=== PATIENT | male | born 1955 | race Asian ===

== ENCOUNTER → 2016-09-06 | Outpatient (CLI) | payer OTHER, MEDICARE ==
[~2016-09-06] MED LIST: ALLO300T PO; CALC1CAP8 PO; CALC1TAB68 PO; CALC200T24 PO; CHOL10003 PO; CHOL500014 PO; COLE625T2 PO; INSU100I13 SQ-INSULIN; INSU100V8 SQ; METF500T4 PO; PANT40TA5 PO; POLY17PO5 PO; PRED20TA PO; PRED5TAB PO; SEVE800T PO; SIMV20TA3 PO; VALS320T2 PO
== END | disposition home or self-care (01) ==
LOC: CVU 13:18
DX: N18.6 End stage renal disease (principal); Z99.2 Dependence on renal dialysis
CPT/HCPCS: G0365

== ENCOUNTER 2020-06-14 11:02 | Emergency (ER) | payer MEDICARE, OTHER ==
[~2020-06-14] VITALS: Ht 172.7 cm; Wt 108.0 kg
[~2020-06-14 11:02] MED LIST changes: -CHOL500014 PO; +CHOL500045 PO; +COLE625T12 PO; -COLE625T2 PO; +METF500T17 PO; -METF500T4 PO; -PANT40TA5 PO; +PANT40TA6 PO; -SEVE800T PO; +SEVE800T7 PO; +SIMV20TA19 PO; -SIMV20TA3 PO
--- NOTE | 2020-06-14 12:30 | NUR ---
US AT BEDSIDE.
--- NOTE | 2020-06-14 13:12 | NUR ---
RECEIVED REPORT FROM MADELINE CHOUDHARY. PT RESTING ON RACHEL. NADN. LINDSAYS. TECH AT BEDSIDE.
--- NOTE | 2020-06-14 14:11 | NUR ---
CALLED CARDIOVASCULAR US WHO STATES US IS CMP WAITING ON THE READ.
--- NOTE | 2020-06-14 14:16 | NUR ---
PT RESTING ON GURNEY. NADN. ROBLEDO.
--- NOTE | 2020-06-14 15:30 | NUR ---
THIS FLOAT RN AT BEDSIDE TO DC PT FOR PRIMARY RN, MILIND. PT AND FAMILY VERBALIZED UNDERSTANDING TO DC INSTRUCTIONS. AMBULATORY TO CHECKOUT C STEADY GAIT. VSS.
[2020-06-14 15:31] VITALS: BP 11/59
== END 2020-06-14 15:32 | disposition home or self-care (01) ==
LOC: ED 11:37
DX: I70.201 Unspecified atherosclerosis of native arteries of extremities, right leg (principal); L53.9 Erythematous condition, unspecified; M79.89 Other specified soft tissue disorders; I10 Essential (primary) hypertension; E11.9 Type 2 diabetes mellitus without complications; J45.909 Unspecified asthma, uncomplicated
CPT/HCPCS: 93931; 99285

== ENCOUNTER 2020-06-25 08:21 | Emergency (ER) | payer MEDICARE ==
[~2020-06-25] VITALS: Ht 172.7 cm; Wt 108.8 kg
[~2020-06-25 08:21] MED LIST changes: +MIDO5TAB9 PO; +[UNRECOGNIZED DRUG - CODE] IV
--- NOTE | 2020-06-25 08:21 | NUR ---
BIBA FROM DIALYSIS C/O EPISODE SOB & CHEST PRESSURE IMMEDIATELY FOLLOWING MULT AVF ACCESSES BY DIALYSIS STAFF (DIALYSIS TOTALS TODAY PER EMS: 500ML IN, 421ML OUT, 2.3MG HEPARIN), MULT ACCESS D/T RUE AVF INFILTRATION DURING TX TODAY, PT COMPLAINT-FREE ON ARRIVAL; PIV & BG 121 PLANT WIRE CHIEF PER EMS; PT ABLE TO AMBULATE FROM STRETCHER TO GURNEY, MONITORS IN PLACE, COMFORT MEASURES PROVIDED, CALL LIGHT WITHIN REACH.
[2020-06-25 08:48] LABS: BASOPHILS % (AUTO) 0 % (0-1); EOSINOPHILS % (AUTO) 2 % (1-7); LYMPHOCYTES % (AUTO) 13 % (22-44); MEAN CORPUSCULAR HEMOGLOBIN 31.3 pg (27.5-34.5); MEAN CORPUSCULAR HGB CONC 33.2 g/dL (33.2-36.2); MEAN PLATELET VOLUME 7.6 fL (7.4-10.4); MONOCYTES % (AUTO) 6 % (2-9); NEUTROPHILS % (AUTO) 78 % (42-75); PLATELET COUNT 302 x10^3/uL (130-400); RED BLOOD COUNT 2.89 x10^6/uL (4.38-5.82); RED CELL DISTRIBUTION WIDTH 13.5 % (9.4-14.8)
[2020-06-25 08:49] LABS: MD NO
[2020-06-25 08:59] LABS: ALBUMIN 2.6 g/dL (3.4-5.0); ANION GAP 8 mmol/L (5-15); CALCIUM 8.9 mg/dL (8.5-10.1); CHLORIDE 105 mmol/L (98-107); CREATININE 4.15 mg/dL (0.7-1.3)
[2020-06-25] MEDS ORDERED: SODIUM CHLORIDE FLUSH 10ML SYR IVF ONE (09:00)
[2020-06-25 09:03] VITALS: BP 130/68
[2020-06-25 09:03] LABS: TROPONIN I < 0.015 ng/mL (0.000-0.045)
--- NOTE | 2020-06-25 09:03 | NUR ---
PT UPRIGHT ON GURNEY AWAKE & COMFORTABLE, RESPONDS APPROP TOSTAFF, NAD/NO COMPLAINTS, COMFORT MEASURES PROVIDED, MOM ARRIVED TO BS, CALL LIGHT WITHIN REACH.
--- NOTE | 2020-06-25 09:58 | NUR ---
TASK RNPatient/Caregiver given discharge instructions and they have confirmed that they understand the instructions. Patient ambulatory to wheelchair for d/c.
== END 2020-06-25 09:59 | disposition home or self-care (01) ==
LOC: ED 08:39
DX: R07.2 Precordial pain (principal); R06.00 Dyspnea, unspecified; I10 Essential (primary) hypertension; E11.9 Type 2 diabetes mellitus without complications; J45.909 Unspecified asthma, uncomplicated; E78.5 Hyperlipidemia, unspecified; Z87.891 Personal history of nicotine dependence
CPT/HCPCS: 36415; 71045; 80048; 82040; 84484; 85025; 93005; 99285

== ENCOUNTER 2020-08-03 14:24 | Emergency (ER) | payer MEDICARE ==
[~2020-08-03] VITALS: Ht 172.7 cm; Wt 105.1 kg
--- NOTE | 2020-08-03 14:56 | NUR ---
PT CAME IN CO NECK PAIN. DENIES TRAUMA. "STARTED LAST TUESDAY AND IT MOVES UP THE BACK OF MY HEAD" LIMITED ROM FROM SIDE TO SIDE. PT IN BED IN GOWN AWAITING MD DUBOIS. FAMILY AT BEDSIDE.
[2020-08-03] MEDS ORDERED: KETOROLAC 30 MG/1 ML IM ONE (15:30)
[2020-08-03] MEDS ORDERED: DIAZEPAM 5 MG TABLET PO ONE (15:30)
[2020-08-03] MEDS ORDERED: DIAZEPAM 5 MG TABLET ONE (15:40)
[2020-08-03] MEDS ORDERED: KETOROLAC 30 MG/1 ML ONE (15:40)
[2020-08-03 15:52] VITALS: BP 150/78
--- NOTE | 2020-08-03 15:52 | NUR ---
PT RESTING COMFORTABLY IN BED. CALL LIGHT WITHIN REACH.
== END 2020-08-03 16:20 | disposition home or self-care (01) ==
LOC: ED 14:56
DX: S16.1XXA Strain of muscle, fascia and tendon at neck level, initial encounter (principal); E11.9 Type 2 diabetes mellitus without complications; J45.909 Unspecified asthma, uncomplicated; M10.9 Gout, unspecified; I10 Essential (primary) hypertension; E78.5 Hyperlipidemia, unspecified; E78.00 Pure hypercholesterolemia, unspecified; X58.XXXA Exposure to other specified factors, initial encounter; Y93.89 Activity, other specified; Y92.89 Other specified places as the place of occurrence of the external cause; Y99.8 Other external cause status
CPT/HCPCS: 96372; 99283; J1885

== ENCOUNTER 2020-08-20 12:24 | Emergency (ER) | payer MEDICARE ==
[~2020-08-20] VITALS: Ht 172.7 cm; Wt 105.0 kg
--- NOTE | 2020-08-20 13:07 | NUR ---
TASK RN: PT AMBULATED STEADILY TO ROOM FROM TRIAGE. NAD NOTED. PT REPORTS 'CLOTTING' OF R DIALYSIS SITE. MULTIPLE FISTULA SITES ON RUE, SITES PULSATILE- NO THRILL OR BRUIT NOTED. DIFFICULT TO OBTAIN MEDICAL HISTORY FROM PATIENT-- POSSIBLE HX OF DVT. BP/SPO2 MONITOR IN PLACE. REPORT TO PRIMARY RNSLAVA
--- NOTE | 2020-08-20 13:26 | NUR ---
assumed care of pt. report from Deepa CORREA pt here for evaluation of VIKKI fistula that was unable to be used for dialysis tiday. pt usually has dialysis -- and states that his last dialysis was on Tuesday and there were no issues. fistula is currently covered. no bruit or thrill noted. no other c/o at this time Dr. Valenzuela at bedside for eval
--- NOTE | 2020-08-20 13:32 | NUR ---
pt reports last meal at 1130. pt advised to be NPO at this time
[2020-08-20 13:51] LABS: BASOPHILS % (AUTO) 1 % (0-1); EOSINOPHILS % (AUTO) 3 % (1-7); LYMPHOCYTES % (AUTO) 19 % (22-44); MEAN CORPUSCULAR HEMOGLOBIN 29.7 pg (27.5-34.5); MEAN CORPUSCULAR HGB CONC 32.2 g/dL (33.2-36.2); MEAN PLATELET VOLUME 7.8 fL (7.4-10.4); MONOCYTES % (AUTO) 9 % (2-9); NEUTROPHILS % (AUTO) 67 % (42-75); PLATELET COUNT 162 x10^3/uL (130-400); RED BLOOD COUNT 3.49 x10^6/uL (4.38-5.82); RED CELL DISTRIBUTION WIDTH 16.9 % (9.4-14.8)
[2020-08-20 14:00] LABS: MD NO
[2020-08-20] MEDS ORDERED: SODIUM CHLORIDE FLUSH 10ML SYR IVF ONE (14:00)
[2020-08-20 14:01] LABS: ALANINE AMINOTRANSFERASE 17 U/L (12-78); ALBUMIN 2.8 g/dL (3.4-5.0); ANION GAP 8 mmol/L (5-15); CALCIUM 8.2 mg/dL (8.5-10.1); CHLORIDE 107 mmol/L (98-107)
[2020-08-20 14:03] LABS: INTERNATIONAL NORMALIZED RATIO 1.07 (0.93-1.1); PROTHROMBIN TIME 11.4 Seconds (9.6-11.5)
[2020-08-20 14:06] LABS: ALKALINE PHOSPHATASE 60 U/L (45-117); BILIRUBIN,TOTAL 0.3 mg/dL (0.2-1.0); CREATININE 7.11 mg/dL (0.7-1.3); TOTAL PROTEIN 7.8 g/dL (6.4-8.2)
--- NOTE | 2020-08-20 14:27 | NUR ---
pt sleeping. no apparent distress
--- NOTE | 2020-08-20 15:06 | NUR ---
Dr Bauer, vascular surgeon at bedside for eval
--- NOTE | 2020-08-20 15:34 | NUR ---
pt resting in position of comfort. no apparent distress. no new c/o
[2020-08-20] MEDS ORDERED: LIDOCAINE 1%, 20ML ONE (15:51)
[2020-08-20] MEDS ORDERED: FENTANYL PF 100 MCG/2ML ONE (16:00)
[2020-08-20] MEDS ORDERED: NALOXONE 1 MG/ML, 2ML ONE (16:01)
--- NOTE | 2020-08-20 16:06 | NUR ---
pt ro RAD for procedure. report to Chadwick CORREA
[2020-08-20] MEDS ORDERED: CEFAZOLIN PMX 1GM/50ML 50 ML ONE (16:24)
--- NOTE | 2020-08-20 16:29 | NUR ---
pt still in RAD
--- NOTE | 2020-08-20 16:55 | NUR ---
pt returned to room. dialysis cath in palce to L chest. dressing in place, CDI. pt has no c/o at this time. resting in position of comfort. MD to be notified that pt has returned
[2020-08-20 17:53] VITALS: BP 143/79
[2020-08-21] MEDS ORDERED: CHOL10003 PO (18:46)
[2020-08-21] MEDS ORDERED: PANTOPRAZOLE SODIUM PO (18:47)
== END 2020-08-20 17:56 | disposition home or self-care (01) ==
LOC: ED 16:06
DX: I12.0 Hypertensive chronic kidney disease with stage 5 chronic kidney disease or end stage renal disease (principal); E11.22 Type 2 diabetes mellitus with diabetic chronic kidney disease; N18.6 End stage renal disease; J45.909 Unspecified asthma, uncomplicated; E78.00 Pure hypercholesterolemia, unspecified; M10.9 Gout, unspecified
CPT/HCPCS: 36415; 36558; 71045; 76937; 80053; 83735; 83880; 84100; 85025; 85610; 85730; 93005; 99285; C1750; J0690; J1642; J3010; J3490; J2310

== ENCOUNTER 2020-08-21 18:06 | Emergency (ER) | payer MEDICARE ==
[~2020-08-21] VITALS: Ht 172.7 cm; Wt 104.6 kg
--- NOTE | 2020-08-21 18:07 | NUR ---
LATE ENTRY DUE TO PATIENT CARE: PATIENT BIB EMS WITH CHIEF C/O BLEEDING AT PORT SITE. PER EMS PATIENT REPORTS HIS PORT SITE IS BLEEDING, PAIN WITH PALPATION AT SITE. PORT PLACED YESTERDAY. VSS EN ROUTE, GAUZE PLACED OVER SITE TO CONTROL BLEEDING BY EMS, NO OTHER INTERVENTIONS DONE EN ROUTE. UPON ASSESSMENT PATIENT HAS NO OTHER COMPLAINTS EXCEPT THE BLEEDING AT HIS PORT SITE. PATIENT REPORTS STARTED BLEEDING AROUND 1430 THIS AFTERNOON, SITE PAINFUL TO TOUCH. SITE NOT ACTIVELY BLEEDING, ERMD AT BEDSIDE AND PULLED DRESSING OFF AND CLEANED UP COAGULATED BLOOD FROM SITE, WILL SPEAK WITH IR ABOUT HOW TO PROCEED.
--- NOTE | 2020-08-21 18:12 | NUR ---
ERMD AT BEDSIDE FOR EVALUATION.
--- NOTE | 2020-08-21 18:37 | NUR ---
BEDSIDE REPORT FROM SAMARA CORREA, PT CARE TRANSFERRED AT THIS TIME. PT NAD, RESTING ON GURNEY, APPEARS COMFORTABLE, BED IN LOWEST, RAILS ENGAGED, CALL LIGHT ON LAP, WCTM. PT TO GO TO IR.
[2020-08-21] MEDS ORDERED: CHOL10003 PO (18:46)
[2020-08-21] MEDS ORDERED: PANTOPRAZOLE SODIUM PO (18:47)
[2020-08-21] MEDS ORDERED: LIDOCAINE 1%, 10ML ONE (19:05)
[2020-08-21 20:54] VITALS: BP 142/75
--- NOTE | 2020-08-21 20:59 | NUR ---
Patient given discharge instructions and they have confirmed that they understand the instructions. Patient ambulatory with steady gait. NAD, DENIES ADDITIONAL QUESTIONS OR NEEDS AT THIS TIME.
--- NOTE | 2020-08-21 21:13 | NUR ---
Patient given discharge instructions and they have confirmed that they understand the instructions. Patient ambulatory with steady gait. NAD, DENIES ADDITIONAL QUESTIONS OR NEEDS, VSS. NO PERSONAL BELONGINGS LEFT IN ROOM AFTER DC.
== END 2020-08-21 21:14 | disposition home or self-care (01) ==
LOC: ED 19:41
DX: T82.838A Hemorrhage due to vascular prosthetic devices, implants and grafts, initial encounter (principal)
CPT/HCPCS: 76000; 99284; J3490

== ENCOUNTER 2020-08-24 08:40 | Emergency (ER) | payer MEDICARE ==
[~2020-08-24] VITALS: Ht 172.7 cm; Wt 102.0 kg
[~2020-08-24 08:40] MED LIST changes: +PANTOPRAZOLE SODIUM PO
--- NOTE | 2020-08-24 08:53 | NUR ---
PT WAS AMBULATORY TO ED ROOM 31 W/ STEADY GAIT. DOMI VEGA AT BS FOR EXAM. PT STATES LT ARM PAIN STARTED AFTER DRIVING YESTERDAY. DENIES CP. C/O PAIN TO LT SCAPULAR AREA. COVID VACCINATION TO LT ARM 1 WK AGO. DENIES TRAUMA, HEAVY LIFTING, PUSHING.
[2020-08-24] MEDS ORDERED: OXYcodone/APAP 5/325MG TABLET PO ONE (09:00)
--- NOTE | 2020-08-24 09:03 | NUR ---
TOOK TYLENOL "4 HOURS AGO"
[2020-08-24] MEDS ORDERED: SIMV20TA19 PO (09:09)
[2020-08-24] MEDS ORDERED: METH-640 PO (09:09)
[2020-08-24] MEDS ORDERED: SEVE800T7 PO (09:10)
[2020-08-24] MEDS ORDERED: OXYcodone/APAP 5/325MG TABLET ONE (09:14)
--- NOTE | 2020-08-24 09:16 | NUR ---
PERCOCET GIVEN PER EMAR. PT WAITING XR. SPOUSE IN ROOM
--- NOTE | 2020-08-24 09:41 | NUR ---
TO XR PER RACHEL
--- NOTE | 2020-08-24 10:25 | NUR ---
PROVIDER AT BS TO DISCUSS POC. ADDITIONAL BLOOD TEST TO BE ORDERED.
--- NOTE | 2020-08-24 11:17 | NUR ---
PT TO BE DC'D W/ ARM SPLINT & SLING. PT HAS OWN SLING W/ HIM.
--- NOTE | 2020-08-24 11:19 | NUR ---
PT AWAITING SPLINT APPLICATION.
--- NOTE | 2020-08-24 11:31 | NUR ---
JENNIFER SANDS AT FOR SPLINT APPLICATION
[2020-08-24 11:44] VITALS: BP 153/70
== END 2020-08-24 11:48 | disposition home or self-care (01) ==
LOC: ED 09:56
DX: M25.422 Effusion, left elbow (principal); E11.9 Type 2 diabetes mellitus without complications; Z87.891 Personal history of nicotine dependence
CPT/HCPCS: 29105; 36415; 84550; 99285

== ENCOUNTER 2020-10-01 13:40 | Outpatient (CLI) | payer MEDICARE ==
[~2020-10-01 13:40] MED LIST changes: +METH-640 PO
[2020-10-01] MEDS ORDERED: ASCO100018 PO (14:47)
[2020-10-01] MEDS ORDERED: VITA1CAP PO (14:47)
[2020-10-01 14:52] LABS: BASOPHILS % (AUTO) 1 % (0-1); EOSINOPHILS % (AUTO) 5 % (1-7); LYMPHOCYTES % (AUTO) 24 % (22-44); MEAN CORPUSCULAR HGB CONC 32.9 g/dL (33.2-36.2); MEAN PLATELET VOLUME 8.2 fL (7.4-10.4); MONOCYTES % (AUTO) 9 % (2-9); NEUTROPHILS % (AUTO) 61 % (42-75); PLATELET COUNT 133 x10^3/uL (130-400); RED BLOOD COUNT 4.16 x10^6/uL (4.38-5.82)
[2020-10-01 14:57] LABS: MD NO
[2020-10-01 15:02] LABS: ALANINE AMINOTRANSFERASE 18 U/L (12-78); ALBUMIN 3.4 g/dL (3.4-5.0); ANION GAP 12 mmol/L (5-15); CALCIUM 8.3 mg/dL (8.5-10.1); CHLORIDE 106 mmol/L (98-107); CREATININE 7.21 mg/dL (0.7-1.3)
[2020-10-01 15:03] LABS: INTERNATIONAL NORMALIZED RATIO 0.98 (0.93-1.1); PROTHROMBIN TIME 10.5 Seconds (9.6-11.5)
[2020-10-01 15:04] LABS: ALKALINE PHOSPHATASE 59 U/L (45-117); BILIRUBIN,TOTAL 0.4 mg/dL (0.2-1.0)
== END 2020-10-01 23:59 | disposition home or self-care (01) ==
LOC: STAR 13:40
PROVIDERS: ATTEND Surgery Vascular Surgery
DX: Z01.812 Encounter for preprocedural laboratory examination (principal); L98.8 Other specified disorders of the skin and subcutaneous tissue; Z20.822 Contact with and (suspected) exposure to COVID-19
CPT/HCPCS: 36415; 80053; 85025; 85610; 85730; U0003; U0005

== ENCOUNTER 2020-10-07 12:17 | Day surgery (SDC) | payer MEDICARE ==
[~2020-10-07] VITALS: Ht 172.7 cm; Wt 97.7 kg
[~2020-10-07 12:17] MED LIST changes: +ASCO100018 PO; +VITA1CAP PO
[2020-10-07] MEDS ORDERED: CHLORHEXIDINE 15 ML UDC PO ONE (13:00)
[2020-10-07] MEDS ORDERED: SODIUM CHLORIDE 0.9% 1,000 ML IV SCH (13:00)
[2020-10-07] MEDS ORDERED: BUPIVACAINE/PF 0.5% ONE (13:07)
[2020-10-07] MEDS ORDERED: HEPARIN 1,000 UNITS/ML, 10ML ONE (13:07)
[2020-10-07 13:11] VITALS: BP 146/93
[2020-10-07] MEDS ORDERED: FENTANYL PF 100 MCG/2ML ONE (14:05)
[2020-10-07] MEDS ORDERED: MIDAZOLAM 1 MG/ML, 2ML ONE (14:05)
[2020-10-07] MEDS ORDERED: CEFAZOLIN 1,000 MG ONE (14:59)
[2020-10-07] MEDS ORDERED: PROPOFOL 10 MG/ML, 20ML ONE (14:59)
[2020-10-07] MEDS ORDERED: ONDANSETRON 2MG/ML, 2ML ONE (14:59)
[2020-10-07] MEDS ORDERED: DEXAMETHASONE 4 MG/ML, 1ML ONE (15:00)
[2020-10-07] MEDS ORDERED: MEPERIDINE/PF 25MG/0.5ML IVPush PRN (15:30)
[2020-10-07] MEDS ORDERED: MIDAZOLAM 1 MG/ML, 2ML IV PRN (15:30)
[2020-10-07] MEDS ORDERED: FENTANYL PF 100 MCG/2ML IV PRN (15:30)
[2020-10-07] MEDS ORDERED: LABETALOL 5MG/ML, 20ML IV PRN (15:30)
[2020-10-07] MEDS ORDERED: OXYcodone 5 MG/5 ML ORAL.SOL UDC PO PRN (15:30)
[2020-10-07] MEDS ORDERED: PROMETHAZINE 25 MG/ML, 1ML IVPush PRN (15:30)
[2020-10-07] MEDS ORDERED: ACETAMINOPHEN 325 MG TABLET PO PRN (15:30)
[2020-10-07] MEDS ORDERED: ACETAMINOPHEN 650 MG/20.3 ML UDC ONE (15:34)
[2020-10-08] MEDS ORDERED: DEXAMETHASONE 4 MG/ML, 1ML ONE (15:10)
== END 2020-10-07 17:30 | disposition home or self-care (01) ==
LOC: OUT 12:17
PROVIDERS: ATTEND Surgery Vascular Surgery
DX: E11.22 Type 2 diabetes mellitus with diabetic chronic kidney disease (principal); I12.0 Hypertensive chronic kidney disease with stage 5 chronic kidney disease or end stage renal disease; N18.6 End stage renal disease; E78.5 Hyperlipidemia, unspecified; E66.9 Obesity, unspecified; Z87.891 Personal history of nicotine dependence; Z88.8 Allergy status to other drugs, medicaments and biological substances
CPT/HCPCS: 36821; 80047; J0690; J1100; J1644; J2250; J2405; J2704; J3010; J7030